=== PATIENT | male | born 1990 | race Caucasian/White ===

== ENCOUNTER 2017-06-23 20:46 | Emergency (ER) | payer SELFPAY ==
[2017-06-23] MEDS ORDERED: Bacitracin Zinc 1 Packet ONE (21:29)
== END 2017-06-23 21:32 ==
LOC: NAV ERS 20:46
DX: S30.1XXA Contusion of abdominal wall, initial encounter (principal); V53.6XXA Passenger in pick-up truck or van injured in collision with car, pick-up truck or van in traffic accident, initial encounter
CPT/HCPCS: 99283